=== PATIENT | female | born 1980 | race Caucasian/White ===

== ENCOUNTER → 2016-09-13 | Outpatient (CLI) | payer BC ==
[~2016-09-13] VITALS: Ht 160 cm; Wt 151.5 kg
[~2016-09-13] MED LIST: DULO60CA44 PO; GLUCTAB7 PO; LEVO150T PO; LEVO175T PO; MONT1TAB3 PO; ONDA8TAB6 PO; PROP10TA7 PO; PRT/20 PO; SUMA100T16 PO; VNTHFA/IN INH
[2016-09-13 13:56] VITALS: BP 159/98; PULSE 82; Ht 160 cm; Wt 151.5 kg
== END | disposition home or self-care (01) ==
LOC: C.NEUR 12:55
PROVIDERS: ATTEND Physician Assistant
DX: G47.33 Obstructive sleep apnea (adult) (pediatric) (principal); R06.83 Snoring; E66.9 Obesity, unspecified

== ENCOUNTER → 2017-01-14 | Outpatient (CLI) | payer BC ==
[2017-01-14 17:46] LABS: HEMATOCRIT 30.9 % (37-47); MEAN CELL VOLUME 70.1 fL (80-100); MEAN CORPUSCULAR HGB CONC 28.5 g/dl (32-36); MEAN PLATELET VOLUME 9.9 fL (7.4-10.4); PLATELET COUNT 258 K/uL (130-400); RED BLOOD COUNT 4.41 M/uL (4.2-5.4); WHITE BLOOD COUNT 6.59 K/uL (4.8-10.8)
[2017-01-14 17:56] LABS: ALT/SGPT 30 U/L (12-78); AST/SGOT 33 U/L (15-37); BASO % 0.5 %; BASO ABS # 0.03 K/uL (0-0.2); BLOOD UREA NITROGEN 8 mg/dl (7-18); BUN/CREATININE RATIO 7.1 (10-20); CALCIUM 8.8 mg/dl (8.5-10.1); CARBON DIOXIDE 26 mmol/L (21-32); CHLORIDE 108 mmol/L (98-107); COMPLETE YES; EOS % 1.5 %; GLUCOSE 113 mg/dl (70-99); IG% 0.3 %; LYMPH % 11.5 %; LYMPH ABS # 0.76 K/uL (1.2-3.4); MICROCYTOSIS PRESENT; MONO % 6.7 %; NEUT % 79.5 %; POLYCHROMASIA 1+; POTASSIUM 3.7 mmol/L (3.5-5.1); SODIUM 141 mmol/L (136-145)
[2017-01-14 17:58] LABS: ALB/GLOB RATIO 0.7 (0.9-2); ALKALINE PHOSPHATASE 95 U/L (45-117)
== END | disposition home or self-care (01) ==
LOC: C.LAB 16:29
PROVIDERS: ATTEND Family Medicine
DX: R11.10 Vomiting, unspecified (principal); R19.7 Diarrhea, unspecified

== ENCOUNTER 2017-01-25 21:52 | Emergency (ER) | payer BC ==
[~2017-01-25] VITALS: Ht 160 cm; Wt 149.5 kg
[2017-01-25 21:59] VITALS: TEMP 36.3; Ht 160 cm; Wt 149.5 kg
[2017-01-25] MEDS ORDERED: PROCHLORPERAZINE 5 MG/ML 2 ML VIAL IV STA (22:14)
[2017-01-25] MEDS ORDERED: DiphenhydrAMINE HCL 50 MG/ML VIAL IV STA (22:14)
[2017-01-25] MEDS ORDERED: KETOROLAC TROMETHAMINE 30 MG/ML VIAL IV STA (22:14)
[2017-01-25] MEDS ORDERED: SODIUM CHLORIDE 0.9% 1000ML 1,000 ML IV ONE (22:15)
[2017-01-25] MEDS ORDERED: DEXAMETHASONE SOD INJ 10 MG/ML VIAL IV ONE (22:15)
[2017-01-25] MEDS ORDERED: LORAZEPAM 2 MG/ML 1 ML VIAL IV STA (23:14)
[2017-01-25] MEDS ORDERED: LEVO150T PO (23:29)
[2017-01-25] MEDS ORDERED: MONT1TAB3 PO (23:29)
[2017-01-25] MEDS ORDERED: LEVO175T PO (23:29)
[2017-01-25] MEDS ORDERED: DULO60CA44 PO (23:30)
[2017-01-25] MEDS ORDERED: PROP10TA7 PO (23:30)
[2017-01-25] MEDS ORDERED: GLUCTAB7 PO (23:31)
[2017-01-25] MEDS ORDERED: ONDA8TAB6 PO (23:31)
[2017-01-25] MEDS ORDERED: VNTHFA/IN INH (23:31)
[2017-01-25] MEDS ORDERED: PRT/20 PO (23:31)
[2017-01-25] MEDS ORDERED: SUMA100T16 PO (23:31)
[2017-01-25 23:36] LABS: ALT/SGPT 25 U/L (12-78); AST/SGOT < 3 U/L (15-37); BLOOD UREA NITROGEN 19 mg/dl (7-18); BUN/CREATININE RATIO 18.5 (10-20); CALCIUM 8.9 mg/dl (8.5-10.1); CARBON DIOXIDE 31 mmol/L (21-32); CHLORIDE 103 mmol/L (98-107); GLUCOSE 96 mg/dl (70-99); MAGNESIUM 2.7 mg/dl (1.8-2.4); POTASSIUM 4.1 mmol/L (3.5-5.1); SODIUM 141 mmol/L (136-145)
[2017-01-25 23:39] LABS: ALB/GLOB RATIO 0.9 (0.9-2); ALKALINE PHOSPHATASE 73 U/L (45-117)
--- NOTE | 2017-01-25 23:50 | DIAGNOSTIC IMAGING REPORT ---
CT SCAN OF THE BRAIN WITHOUT IV CONTRAST CLINICAL HISTORY: Headache. COMPARISON STUDY: CT scan of the paranasal sinuses dated 02/19/2013. TECHNIQUE: Unenhanced axial CT scan of the brain is performed from the vertex to the skull base. Automated dose control exposure was utilized. CT DOSE: 1225.46 mGy.cm FINDINGS: Brain parenchyma: The brain parenchyma is normal in appearance. There is no hemorrhage, mass effect, or evidence of acute territorial ischemia by CT criteria. Linares-white matter is preserved. No extra-axial fluid collection is seen. Ventricles, sulci, cisterns: Normal in configuration. Intracranial vasculature: The visualized intracranial vasculature at the skull base is normal in appearance. Calvarium: Unremarkable. Sinuses and mastoids: The visualized paranasal sinuses are clear. The mastoid air cells are well pneumatized. Orbits: The bony orbits are grossly intact. IMPRESSION: No acute intracranial abnormality. Electronically signed by: Jaison Solares M.D. 01/25/2017 11:48 PM Dictated Date/Time: 01/25/2017 11:46 PM
[2017-01-26 00:07] VITALS: BP 123/75; PULSE 70; O2SAT 97
[2017-01-26 00:10] LABS: HEMATOCRIT 29.2 % (37-47); MEAN CELL VOLUME 69.2 fL (80-100); MEAN CORPUSCULAR HEMOGLOBIN 20.1 pg (25-34); MEAN CORPUSCULAR HGB CONC 29.1 g/dl (32-36); MEAN PLATELET VOLUME 10.3 fL (7.4-10.4); PLATELET COUNT 325 K/uL (130-400); RED BLOOD COUNT 4.22 M/uL (4.2-5.4)
[2017-01-26 00:11] LABS: BASO % 0.2 %; BASO ABS # 0.04 K/uL (0-0.2); COMPLETE YES; EOS % 0.2 %; IG% 0.6 %; LYMPH ABS # 3.09 K/uL (1.2-3.4); MICROCYTOSIS PRESENT; MONO % 7.1 %; NEUT % 72.9 %; POLYCHROMASIA 1+; STOMATOCYTE 1+
--- NOTE | 2017-01-26 02:20 | EMERGENCY ROOM VISIT NOTE ---
History First contact with patient: 22:03 Chief Complaint: HEADACHE Stated Complaint: SEVERE MIGRAINE, UPSET STOMACH History of Present Illness The patient is a 36 year old female who presents to the Emergency Room with complaints of migraine headache worsening over the past one day. The patient reports a history of long-standing migraine headaches. She typically does well at home with Imitrex, and she did utilize Imitrex today. She states that the Imitrex did not improve her symptoms, and shortly afterwards she had several episodes of vomiting, which made her headache worse. This is not the worst headache of her life. She is not having fever, chills, neck pain, chest pain, chest tightness, shortness of breath, numbness, or paresthesias. No recent URI symptoms. The patient has followed with neurology in the past, but not for several years. She does utilize [facility] from time to time with her headaches. She does not recall the last time she had imaging of her head. She is without other complaints and rates her current discomfort a 9/10. Review of Systems More than 10 systems were reviewed and otherwise negative with the exception of history of present illness. Past Medical/Surgical History History of chronic migraines Family History No pertinent family history Social History Smoking Status: Never Smoker Housing Status: lives with family Current/Historical Medications Scheduled Duloxetine Hcl (Cymbalta), 60 MG PO DAILY Kwdownxgwuc-Ilmnrjkjhho-Kkq C- (Glucosamine Chondroitin), 1 TAB PO DAILY Levothyroxine Sodium (Synthroid), 150 MCG PO Q2D Levothyroxine Sodium (Synthroid), 175 MCG PO Q2D Montelukast Sodium (Singulair), 10 MG PO DAILY Pantoprazole (Protonix), 20 MG PO DAILY Propranolol (Inderal), 1 TAB PO DAILY Scheduled PRN Albuterol Hfa (Ventolin Hfa), 2 PUFFS INH Q6H PRN for SOB/Wheezing Ondansetron Hcl (Zofran), 8 MG PO Q8 PRN for Nausea Sumatriptan Succinate (Imitrex), 100 MG PO UD PRN for Migraine Allergies Coded Allergies: No Known Allergies (Unverified , 01/25/17) Physical Exam Vital Signs Date Time Temp Pulse Resp B/P (MAP) Pulse Ox O2 Delivery O2 Flow Rate FiO2 01/26/17 00:07 70 16 123/75 97 Room Air 01/25/17 21:59 36.3 90 18 154/104 100 Room Air Pain Rating (0-10): 0 Physical Exam VITALS: Vitals are noted on the nurse's note and reviewed by myself. Vital signs stable. GENERAL: Well-developed, well-nourished, white female who appears mildly uncomfortable secondary to her stated complaint. Patient is cooperative with the examination. HEAD: Normocephalic atraumatic. EARS: External ear normal. External auditory canals clear, tympanic membranes pearly linares without erythema or effusion bilaterally. EYES: Pupils equal round and reactive to light and accommodation. Conjunctivae without injection, sclerae without icterus. Extraocular movements intact. NOSE: Patent, turbinates without inflammation or discharge. MOUTH: Mucous membranes moist. Tonsils are not enlarged. Pharynx without erythema, blood, or exudate. Uvula midline. Airway patent. NECK: Supple without nuchal rigidity. No lymphadenopathy. No thyromegaly. Cervical spine is nontender. No meningismus. HEART: Regular rate and rhythm without murmurs gallops or rubs. LUNGS: Clear to auscultation bilaterally without wheezes, rales or rhonchi. No retractions or accessory muscle use. ABDOMEN: Positive normal bowel sounds x 4. Soft, nontender, without masses or organomegaly. No guarding or rebound tenderness. MUSCULOSKELETAL: No muscle atrophy, erythema, or edema noted. Full range of motion without joint tenderness in all extremities. NEURO: Patient was alert and oriented to person place and time. CN II through XII grossly intact. Deep tendon reflexes 2+ throughout. No focal neurological deficits SKIN: The skin was without rashes, erythema, edema, or bruising. Capillary reflex less than 2 seconds. Medical Decision & Procedures ER Provider Diagnostic Interpretation: CT SCAN OF THE BRAIN WITHOUT IV CONTRAST CLINICAL HISTORY: Headache. COMPARISON STUDY: CT scan of the paranasal sinuses dated 02/19/2013. TECHNIQUE: Unenhanced axial CT scan of the brain is performed from the vertex to the skull base. Automated dose control exposure was utilized. CT DOSE: 1225.46 mGy.cm FINDINGS: Brain parenchyma: The brain parenchyma is normal in appearance. There is no hemorrhage, mass effect, or evidence of acute territorial ischemia by CT criteria. Linares-white matter is preserved. No extra-axial fluid collection is seen. Ventricles, sulci, cisterns: Normal in configuration. Intracranial vasculature: The visualized intracranial vasculature at the skull base is normal in appearance. Calvarium: Unremarkable. Sinuses and mastoids: The visualized paranasal sinuses are clear. The mastoid air cells are well pneumatized. Orbits: The bony orbits are grossly intact. IMPRESSION: No acute intracranial abnormality. Laboratory Results 01/25/17 23:10 Red Blood Count 4.22, Mean Corpuscular Volume 69.2, Mean Corpuscular Hemoglobin 20.1, Mean Corpuscular Hemoglobin Concent 29.1, Mean Platelet Volume 10.3, Neutrophils (%) (Auto) 72.9, Lymphocytes (%) (Auto) 19.0, Monocytes (%) (Auto) 7.1, Eosinophils (%) (Auto) 0.2, Basophils (%) (Auto) 0.2, Neutrophils # (Auto) 11.87, Lymphocytes # (Auto) 3.09, Monocytes # (Auto) 1.16, Eosinophils # (Auto) 0.04, Basophils # (Auto) 0.04 01/25/17 23:10 Test 01/25/17 23:10 White Blood Count 16.30 K/uL (4.8-10.8) Red Blood Count 4.22 M/uL (4.2-5.4) Hemoglobin 8.5 g/dL (12.0-16.0) Hematocrit 29.2 % (37-47) Mean Corpuscular Volume 69.2 fL (80-100) Mean Corpuscular Hemoglobin 20.1 pg (25-34) Mean Corpuscular Hemoglobin Concent 29.1 g/dl (32-36) Platelet Count 325 K/uL (130-400) Mean Platelet Volume 10.3 fL (7.4-10.4) Neutrophils (%) (Auto) 72.9 % Lymphocytes (%) (Auto) 19.0 % Monocytes (%) (Auto) 7.1 % Eosinophils (%) (Auto) 0.2 % Basophils (%) (Auto) 0.2 % Neutrophils # (Auto) 11.87 K/uL (1.4-6.5) Lymphocytes # (Auto) 3.09 K/uL (1.2-3.4) Monocytes # (Auto) 1.16 K/uL (0.11-0.59) Eosinophils # (Auto) 0.04 K/uL (0-0.5) Basophils # (Auto) 0.04 K/uL (0-0.2) RDW Standard Deviation 43.6 fL (36.4-46.3) RDW Coefficient of Variation 17.3 % (11.5-14.5) Immature Granulocyte % (Auto) 0.6 % Immature Granulocyte # (Auto) 0.10 K/uL (0.00-0.02) Polychromasia 1+ Microcytosis PRESENT Stomatocytes 1+ Anion Gap 7.0 mmol/L (3-11) Est Creatinine Clear Calc Drug Dose 110.9 ml/min Estimated GFR () 83.4 Estimated GFR (Non- 71.9 BUN/Creatinine Ratio 18.5 (10-20) Calcium Level 8.9 mg/dl (8.5-10.1) Magnesium Level 2.7 mg/dl (1.8-2.4) Total Bilirubin 0.4 mg/dl (0.2-1) Aspartate Amino Transf (AST/SGOT) < 3 U/L (15-37) Alanine Aminotransferase (ALT/SGPT) 25 U/L (12-78) Alkaline Phosphatase 73 U/L (45-117) Total Protein 7.4 gm/dl (6.4-8.2) Albumin 3.6 gm/dl (3.4-5.0) Globulin 3.8 gm/dl (2.5-4.0) Albumin/Globulin Ratio 0.9 (0.9-2) Medications Administered Medications (Trade) Dose Ordered Sig/Priyanka Route Start Time Stop Time Status Last Admin Dose Admin Diphenhydramine HCl (Benadryl Inj) 50 mg NOW STAT IV 01/25/17 22:14 01/25/17 22:16 DC 01/25/17 22:56 50 MG Dexamethasone Sodium Phosphate (Decadron Inj) 10 mg NOW ONCE IV 01/25/17 22:15 01/25/17 22:16 DC 01/25/17 22:55 10 MG Prochlorperazine Edisylate (Compazine Inj) 10 mg NOW STAT IV 01/25/17 22:14 01/25/17 22:16 DC 01/25/17 22:55 10 MG Sodium Chloride 1,000 ml @ 999 mls/hr Q1H1M ONCE IV 01/25/17 22:15 01/25/17 23:15 DC 01/25/17 22:15 999 MLS/HR Ketorolac Tromethamine (Toradol Inj) 30 mg NOW STAT IV 01/25/17 22:14 01/25/17 22:16 DC 01/25/17 22:55 30 MG Lorazepam (Ativan Inj) 0.5 mg NOW STAT IV 01/25/17 23:14 01/25/17 23:15 DC 01/25/17 23:22 0.5 MG ED Course Physical exam and history were performed. Nursing notes and EMR were reviewed. Patient appears to have migraine headaches chronically with an acute exacerbation today. The patient does not appear toxic on examination. She is not regularly seen at this facility for headaches. IV access was established and labs were obtained. The patient was hydrated with normal saline. She was medicated with 30 mg IV Toradol, 10 mg IV Decadron, 10 mg IV Compazine, 30 mg IV Benadryl, and 0.[address] scan of her head was performed. The patient blood work is as above and was reviewed. She appears to have a slightly elevated white blood cell count, which is felt to be from her emesis which occurred just prior to arrival. She does not have a significant electrolyte imbalance. The patient is anemic, and I discussed this with her. She has a history of chronic anemia, and does follow with her primary care physician for this. She does not appear to need transfusion. The patient CT scan does not show acute intracranial findings. On reexamination the patient felt much more comfortable, and her pain was down to a 1/10. The patient was able to sleep here in the emergency department. The patient overall feels well and comfortable with discharge home. I recommended that she follow with her primary care physician or neurologist in the next few days. She was otherwise invited back to the ER with any new, worsening, or concerning symptoms. The chart was completed utilizing [employer] Voice Recognition Software. Grammatical errors, random word insertions, pronoun errors, and incomplete sentences are an occasional consequence of this system due to software limitations, ambient noise, and hardware issues. Any formal questions or concerns about the content, text, or information contained within the body of this dictation should be directly addressed to the provider for clarification. . Medical Decision The differential diagnosis includes, but is not limited to: acute intracranial bleed, meningitis, encephalitis, mass or mass effect, sinusitis, infection, tumor, headache, temporal arteritis and carbon monoxide exposure, and migraine. Impression Primary Impression: Headache Additional Impression: Anemia Departure Information Dispostion Home / Self-Care Condition GOOD Referrals Jaydon Boyle DO (PCP) Forms HOME CARE DOCUMENTATION FORM, IMPORTANT VISIT INFORMATION Patient Instructions My [facility] Additional Instructions You were seen and evaluated today on an emergency basis only. This is not a substitute for, or an effort to provide, complete comprehensive medical care. It is not possible to recognize and treat all injuries or illnesses in a single emergency department visit. For this reason it is recommended that you followup with your primary care physician or neurologist this week for ongoing care and evaluation. DO NOT drive, drink alcohol, operate machinery, or perform dangerous activities today. You were given medications in the ER that can affect your ability to safely function or operate a vehicle. Rest today in a quiet, peaceful, dark environment and get a full 8-10 hrs of sleep tonight. Follow-up with your primary care physician regarding your anemia Follow with your family doctor regarding your anemia. Avoid loud noises, smoke/smoking, alcohol, bright lights, stress, or physical exertion today to minimize the chance the headache may return. Continue current medications. Ibuprofen(Motrin, Advil) may be used for fever or pain. Use 600mg every six hours as needed. Take with food. Avoid using more than 2400mg in a 24 hour period. Do not use 2400mg per day for more than three consecutive days without physician direction. Prolonged inappropriate use can lead to stomach upset or ulcers. (AND/OR) Acetaminophen(Tylenol) may be used for fever or pain. Use 1000mg every six hours as needed. Avoid using more than 4000mg in a 24 hour period. Return to the ER for passing out, worsening headache, vision problems, neck stiffness/pain, fevers, vomiting, worsening of your condition, or as needed. Problem Qualifiers
== END 2017-01-26 00:30 | disposition home or self-care (01) ==
LOC: C.EDB 21:52
DX: R51 Headache (principal); D64.9 Anemia, unspecified; Z79.899 Other long term (current) drug therapy

== ENCOUNTER → 2017-07-02 | Outpatient (CLI) | payer BC | END | disposition home or self-care (01) | LOC: C.PAPS 11:13 | PROVIDERS: ATTEND Family Medicine | DX: Z12.72 Encounter for screening for malignant neoplasm of vagina (principal) ==